=== PATIENT | male | born 1980 | race Caucasian/White ===

== ENCOUNTER 2021-12-01 15:06 | Emergency (ER) | payer BC | END 2021-12-01 16:44 | disposition home or self-care (01) | LOC: MADERS 15:06 | DX: S29.012A Strain of muscle and tendon of back wall of thorax, initial encounter (principal); J43.9 Emphysema, unspecified; F17.210 Nicotine dependence, cigarettes, uncomplicated; X58.XXXA Exposure to other specified factors, initial encounter | CPT/HCPCS: 71250 ==